=== PATIENT | male | born 1970 | race African-American/Black ===

== ENCOUNTER 2023-03-10 14:06 | Emergency (ER) | payer MEDICAID ==
[~2023-03-10] VITALS: Ht 170.2 cm; Wt 82.0 kg
[2023-03-10 14:16] VITALS: BP 164/106; PULSE 101; RESP 18; TEMP 98.1; O2SAT 99
[2023-03-10 15:26] LABS: BASOPHILS % 1.3 % (0.0-2.0); EOSINOPHILS % 3.4 % (0.0-5.0); HEMATOCRIT. 44.2 % (42.0-52.0); HEMOGLOBIN. 14.6 g/dL (14.0-18.0); LYMPHOCYTES % 42.3 % (20.0-50.0); MEAN CORPUSCULAR HEMOGLOBIN 28.7 pg (28.0-32.0); MEAN CORPUSCULAR HGB CONC 33.1 g/dL (31.0-37.0); MEAN CORPUSCULAR VOLUME 86.7 fL (80.0-94.0); MEAN PLATELET VOLUME 7.9 fl (7.4-10.4); MONOCYTES % 14.6 % (2.0-8.0); NEUTROPHILS % 38.4 % (40.0-76.0); PLATELET 199 x1000/uL (130-400); RED CELL DISTRIBUTION WIDTH 13.2 % (11.6-14.6); WHITE BLOOD COUNT 4.9 x1000/uL (4.5-11.0)
[2023-03-10] MEDS ORDERED: DOCU-286 MT (15:45)
[2023-03-10] MEDS ORDERED: HYDR25SU11 RC (15:45)
== END 2023-03-10 16:18 | disposition home or self-care (01) ==
LOC: ER 14:06
DX: K64.9 Unspecified hemorrhoids (principal); F11.90 Opioid use, unspecified, uncomplicated
CPT/HCPCS: 36415; 85025; 99283